=== PATIENT | female | born 1955 | race Caucasian/White ===

== ENCOUNTER 2022-04-18 15:22 | Inpatient (IN) | payer OTHER ==
[~2022-04-18] VITALS: Ht 152.4 cm; Wt 82.6 kg
[~2022-04-18 15:22] MED LIST: BACLOFEN10 MG PO; COZAAR50 MG PO; CYMBALTA30 MG PO; GABAPENTIN300 M2 PO; LEVO-T88 MCG PO; PRAVASTATIN SOD10 MG PO; ZYRTEC10 M3 PO
[2022-04-23] MEDS ORDERED: INDAPAMIDE1.25 MG (08:27)
[2022-04-23] MEDS ORDERED: CELECOXIB200 MG (08:27)
[2022-04-24] MEDS ORDERED: DUI500 PO (16:21)
[2022-04-24] MEDS ORDERED: PERCOCET 5-3251 EACH PO (16:21)
[2022-04-24] MEDS ORDERED: ELIQUIS2.5 MG PO (16:21)
[2022-04-25] MEDS ORDERED: PERCOCET 5-3251 EACH PO (08:23)
== END 2022-04-25 11:29 | DRG 470 ==
LOC: O/R 04-22 05:07 → SURG 04-22 10:20 → SURH 04-22 11:58 → SURG 04-22 13:30 → SURH 04-25 11:29
PROVIDERS: ADMIT Orthopaedic Surgery; ATTEND Orthopaedic Surgery
PROC: 0SRD0J9 Replacement of Left Knee Joint with Synthetic Substitute, Cemented, Open Approach (ICD-10-PCS; principal; 2022-04-22 13:30)
DX: M17.12 Unilateral primary osteoarthritis, left knee (principal); D62 Acute posthemorrhagic anemia; M22.12 Recurrent subluxation of patella, left knee; E66.8 Other obesity; I10 Essential (primary) hypertension; E03.9 Hypothyroidism, unspecified; Z96.652 Presence of left artificial knee joint; Z20.822 Contact with and (suspected) exposure to COVID-19